=== PATIENT | female | born 1995 | race African-American/Black ===

== ENCOUNTER 2017-01-09 18:07 | Emergency (ER) | payer MEDICAID ==
[~2017-01-09] VITALS: Ht 160 cm; Wt 95.0 kg
[2017-01-09 18:34] VITALS: BP 122/69
== END 2017-01-09 20:05 | disposition left against medical advice (07) ==
LOC: ER 18:07
DX: Z53.21 Procedure and treatment not carried out due to patient leaving prior to being seen by health care provider (principal)

== ENCOUNTER 2017-06-14 10:42 | Observation (INO) | payer MEDICAID | END 2017-06-14 11:36 | disposition home or self-care (01) | LOC: L&D 10:42 | PROVIDERS: ADMIT Specialist; ATTEND Specialist | DX: O42.92 Full-term premature rupture of membranes, unspecified as to length of time between rupture and onset of labor (principal); O26.893 Other specified pregnancy related conditions, third trimester; R10.9 Unspecified abdominal pain; Z3A.38 38 weeks gestation of pregnancy | CPT/HCPCS: 99281; G0378 ==

== ENCOUNTER 2019-07-04 15:58 | Observation (INO) | payer MEDICAID ==
[~2019-07-04] VITALS: Ht 157.5 cm; Wt 99.8 kg
[2019-09-26] MEDS ORDERED: FERR325T6 PO (00:41)
[2019-09-26] MEDS ORDERED: IBUP-2437 PO (00:41)
== END 2019-07-04 18:55 | disposition home or self-care (01) ==
LOC: 8 EST LDRP 15:58
PROVIDERS: ADMIT Obstetrics & Gynecology; ATTEND Obstetrics & Gynecology
DX: O36.8130 Decreased fetal movements, third trimester, not applicable or unspecified (principal); Z3A.36 36 weeks gestation of pregnancy
CPT/HCPCS: 76805; 76818; 99281; G0378

== ENCOUNTER 2019-07-06 08:56 | Emergency (ER) | payer MEDICAID ==
[~2019-07-06] VITALS: Ht 160 cm; Wt 90.7 kg
== END 2019-07-06 10:22 | disposition left against medical advice (07) ==
LOC: ER 08:56 → EDSTATUS 09:53 → ER 10:22
DX: O21.8 Other vomiting complicating pregnancy (principal); Z3A.36 36 weeks gestation of pregnancy
CPT/HCPCS: 99281

== ENCOUNTER 2019-07-29 02:53 | Observation (INO) | payer MEDICAID ==
[~2019-07-29] VITALS: Ht 160 cm; Wt 81.2 kg
[2019-07-29] MEDS ORDERED: LACTATED RINGERS 1,000 ML IV SCH (03:30)
[2019-07-29 04:42] LABS: CLARITY URINE TURBID (CLEAR); COLOR URINE YELLOW (YELLOW); KETONES URINE TRACE (NEGATIVE); LEUKOCYTE ESTERASE URINE 1+ (NEGATIVE); NITRITE URINE NEGATIVE (NEGATIVE); OCCULT BLOOD URINE 1+ (NEGATIVE); PH URINE 8.5 (4.5-8.0); PROTEIN URINE TRACE (NEGATIVE); SPECIFIC GRAVITY URINE 1.019 (1.005-1.030)
[2019-07-29 04:53] LABS: *AMPHETAMINES SCREEN URINE NEGATIVE (NEGATIVE); *BARBITURATES SCREEN URINE NEGATIVE (NEGATIVE); *BENZODIAZEPINES SCREEN URINE NEGATIVE (NEGATIVE); *COCAINE SCREEN URINE NEGATIVE (NEGATIVE)
[2019-07-29 04:54] LABS: CANNABINOID URINE SCREEN NEGATIVE (NEGATIVE); METHADONE URINE SCREEN NEGATIVE (NEGATIVE); OPIATES URINE SCREEN NEGATIVE (NEGATIVE); PHENCYCLIDINE URINE SCREEN NEGATIVE (NEGATIVE)
[2019-09-26] MEDS ORDERED: FERR325T6 PO (00:41)
[2019-09-26] MEDS ORDERED: IBUP-2437 PO (00:41)
== END 2019-07-29 06:00 | disposition home or self-care (01) ==
LOC: 8 EST LDRP 02:53
PROVIDERS: ADMIT Specialist; ATTEND Specialist
DX: O26.893 Other specified pregnancy related conditions, third trimester (principal); R10.30 Lower abdominal pain, unspecified; M54.9 Dorsalgia, unspecified; O62.9 Abnormality of forces of labor, unspecified; Z3A.37 37 weeks gestation of pregnancy; Z79.899 Other long term (current) drug therapy
CPT/HCPCS: 76805; 76818; 80305; 81003; 82731; 99281; G0378; 96360

== ENCOUNTER 2021-04-15 07:33 | Emergency (ER) | payer MEDICAID ==
[~2021-04-15] VITALS: Ht 165.1 cm; Wt 88.0 kg
[~2021-04-15 07:33] MED LIST: FERR325T6 PO; IBUP-2437 PO
[2021-04-15 08:37] LABS: BASOPHILS % 0.6 % (0.0-2.0); EOSINOPHILS % 2.2 % (0.0-5.0); HEMATOCRIT. 36.3 % (36.0-48.0); HEMOGLOBIN. 11.8 g/dL (12.0-16.0); LYMPHOCYTES % 24.8 % (20.0-50.0); MEAN CORPUSCULAR HEMOGLOBIN 25.7 pg (28.0-32.0); MEAN CORPUSCULAR VOLUME 78.9 fL (81.0-99.0); MEAN PLATELET VOLUME 8.9 fl (7.4-10.4); MONOCYTES % 6.6 % (2.0-8.0); NEUTROPHILS % 65.8 % (40.0-76.0); PLATELET 165 x1000/uL (130-400); RED BLOOD CELL COUNT 4.61 mill/uL (4.2-5.4); RED CELL DISTRIBUTION WIDTH 13.9 % (11.6-14.6)
[2021-04-15 08:46] LABS: CHLORIDE 111 mEq/L (98-107)
[2021-04-15 09:53] VITALS: BP 119/48
== END 2021-04-15 09:55 | disposition home or self-care (01) ==
LOC: ER 07:33
DX: N93.8 Other specified abnormal uterine and vaginal bleeding (principal); R05.9 Cough, unspecified; D64.9 Anemia, unspecified
CPT/HCPCS: 36415; 71045; 80053; 85025; 99284

== ENCOUNTER 2021-09-17 15:36 | Emergency (ER) | payer MEDICAID ==
[~2021-09-17] VITALS: Ht 157.5 cm; Wt 87.0 kg
[2021-09-17 15:47] VITALS: BP 135/94
[2021-09-17 21:47] LABS: BASOPHILS % 0.8 % (0.0-2.0); EOSINOPHILS % 0.8 % (0.0-5.0); HEMATOCRIT. 38.9 % (36.0-48.0); HEMOGLOBIN. 12.4 g/dL (12.0-16.0); LYMPHOCYTES % 24.1 % (20.0-50.0); MEAN CORPUSCULAR VOLUME 78.6 fL (81.0-99.0); MEAN PLATELET VOLUME 8.9 fl (7.4-10.4); MONOCYTES % 4.6 % (2.0-8.0); NEUTROPHILS % 69.7 % (40.0-76.0); PLATELET 206 x1000/uL (130-400); RED BLOOD CELL COUNT 4.95 mill/uL (4.2-5.4); RED CELL DISTRIBUTION WIDTH 16.7 % (11.6-14.6)
[2021-09-17 21:53] LABS: CHLORIDE 110 mEq/L (98-107)
[2021-09-17 21:55] LABS: HCG SCREEN NEGATIVE
== END 2021-09-17 18:19 | disposition left against medical advice (07) ==
LOC: ER 15:36
DX: R10.11 Right upper quadrant pain (principal); Z53.21 Procedure and treatment not carried out due to patient leaving prior to being seen by health care provider
CPT/HCPCS: 36415; 80053; 84703; 85025; 86850; 86900; 99283

== ENCOUNTER 2021-09-17 19:32 | Emergency (ER) | payer MEDICAID ==
[~2021-09-17] VITALS: Ht 157.5 cm; Wt 87.0 kg
[2021-09-17 19:42] VITALS: BP 134/97
== END 2021-09-18 00:08 | disposition left against medical advice (07) ==
LOC: ER 19:32
DX: R10.9 Unspecified abdominal pain (principal); N93.9 Abnormal uterine and vaginal bleeding, unspecified; I48.92 Unspecified atrial flutter
CPT/HCPCS: 76830; 76856; 81025; 93005; 99282

== ENCOUNTER 2021-09-18 02:41 | Emergency (ER) | payer MEDICAID ==
[~2021-09-18] VITALS: Ht 157.5 cm; Wt 87.0 kg
[2021-09-18 03:06] VITALS: BP 128/87
== END 2021-09-18 05:00 | disposition left against medical advice (07) ==
LOC: ER 02:41
DX: Z53.21 Procedure and treatment not carried out due to patient leaving prior to being seen by health care provider (principal); R10.11 Right upper quadrant pain; N93.9 Abnormal uterine and vaginal bleeding, unspecified
CPT/HCPCS: 99281

== ENCOUNTER 2022-08-26 21:45 | Inpatient (IN) | payer MEDICAID ==
[~2022-08-26] VITALS: Ht 167.6 cm; Wt 71.2 kg
[2022-08-26] MEDS ORDERED: ONDANSETRON HCL 4MG/2ML INJ IV STA (22:52)
[2022-08-26] MEDS ORDERED: KETOROLAC 30MG/ML VIAL IV STA (22:52)
[2022-08-26] MEDS ORDERED: SODIUM CHLORIDE 0.9% 500 ML IV ONE (23:00)
[2022-08-26 23:28] LABS: HEMATOCRIT. 42.4 % (36.0-48.0); HEMOGLOBIN. 12.6 g/dL (12.0-16.0); MEAN CORPUSCULAR HEMOGLOBIN 21.1 pg (28.0-32.0); MEAN PLATELET VOLUME 9.1 fl (7.4-10.4); PLATELET 243 x1000/uL (130-400); RED BLOOD CELL COUNT 5.97 mill/uL (4.2-5.4); RED CELL DISTRIBUTION WIDTH 21.7 % (11.6-14.6)
[2022-08-26 23:31] LABS: CHLORIDE 104 mEq/L (98-107)
[2022-08-26 23:42] LABS: ETHANOL BLOOD < 10 mg/dL
[2022-08-26 23:54] LABS: HCG SCREEN NEGATIVE
[2022-08-27 00:17] LABS: CLARITY URINE CLEAR (CLEAR); COLOR URINE DARK YELLOW (YELLOW); KETONES URINE 1+ (NEGATIVE); LEUKOCYTE ESTERASE URINE TRACE (NEGATIVE); NITRITE URINE NEGATIVE (NEGATIVE); OCCULT BLOOD URINE NEGATIVE (NEGATIVE); PH URINE 5.5 (4.5-8.0); PROTEIN URINE TRACE (NEGATIVE); SPECIFIC GRAVITY URINE 1.019 (1.005-1.030)
[2022-08-27 00:37] LABS: *BARBITURATES SCREEN URINE NEGATIVE (NEGATIVE); *BENZODIAZEPINES SCREEN URINE NEGATIVE (NEGATIVE); *COCAINE SCREEN URINE NEGATIVE (NEGATIVE); METHADONE URINE SCREEN NEGATIVE (NEGATIVE); OPIATES URINE SCREEN NEGATIVE (NEGATIVE); PHENCYCLIDINE URINE SCREEN NEGATIVE (NEGATIVE)
[2022-08-27 01:08] LABS: *AMPHETAMINES SCREEN URINE PRESUMTIVE POSITIVE (NEGATIVE); CANNABINOID URINE SCREEN PRESUMTIVE POSITIVE (NEGATIVE)
[2022-08-27 01:58] LABS: BG BASE EXCESS -2.4 mmol/L (-2.0-2.0); BG CARBOXYHEMOGLOBIN 1.6 % (0.5-1.5); BG FRACTION INSPIRED OXYGEN 21; BG HCO3 ACT 20.6 mmol/L (22.0-26.0); BG METHEMOGLOBIN 0.4 % (0.0-1.5); BG PCO2 30.5 mmHg (35.0-45.0); BG PH 7.447 (7.350-7.450); BG PO2 141.7 mmHg (75.0-100.0); BG SAMPLE SITE RIGHT RADIAL; BG TOTAL HEMOGLOBIN 13.4 g/dL (12.0-18.0); BG VENT MODE ROOM AIR
[2022-08-27 05:13] VITALS: BP 141/101
[2022-08-27 05:19] LABS: PLATELET ESTIMATE NORMAL
[2022-08-27 05:22] VITALS: BP 141/101
[2022-08-27] MEDS ORDERED: LORAZEPAM 2MG/ML CPJ IV PRN (06:45)
[2022-08-27] MEDS: ONDANSETRON HCL 4MG/2ML INJ IV PRN ×2 (06:46→12:26)
[2022-08-27 08:00] VITALS: BP 110/84
[2022-08-27] MEDS: ENOXAPARIN 40MG/0.4ML SYR SUBCUT SCH (08:28)
[2022-08-27] MEDS: MORPHINE SULFATE 2 MG/ML CPJ (NOT FOR IM USE) IV PRN ×2 (08:29→22:08)
[2022-08-27] MEDS ORDERED: MAGNESIUM/ALUMINUM HYDROXIDE/SIMETHICONE 30ML UDC PO PRN (09:15)
[2022-08-27] MEDS: FUROSEMIDE 40MG/4ML VIAL IVP SCH (10:12)
[2022-08-27 12:00] VITALS: BP 116/72
[2022-08-27 13:43] LABS: BASOPHILS % 0.5 % (0.0-2.0); EOSINOPHILS % 0.4 % (0.0-5.0); HEMATOCRIT. 42.6 % (36.0-48.0); LYMPHOCYTES % 10.3 % (20.0-50.0); MEAN CORPUSCULAR HEMOGLOBIN 21.7 pg (28.0-32.0); MEAN CORPUSCULAR VOLUME 71.1 fL (81.0-99.0); MEAN PLATELET VOLUME 8.9 fl (7.4-10.4); MONOCYTES % 11.2 % (2.0-8.0); NEUTROPHILS % 77.6 % (40.0-76.0); PLATELET 243 x1000/uL (130-400); RED BLOOD CELL COUNT 5.99 mill/uL (4.2-5.4); RED CELL DISTRIBUTION WIDTH 21.4 % (11.6-14.6)
[2022-08-27 13:54] LABS: CHLORIDE 103 mEq/L (98-107)
[2022-08-27 16:00] VITALS: BP 120/84
[2022-08-27] MEDS ORDERED: NALOXONE HCL 0.4MG/ML VIAL IV PRN (17:00)
[2022-08-27] MEDS: HYDROCODONE/ACETAMINOPHEN 5/325MG TABLET PO PRN (17:55)
[2022-08-27 20:00] VITALS: BP 119/75
[2022-08-28 00:05] VITALS: BP 126/97
[2022-08-28 04:00] VITALS: BP 120/88
[2022-08-28] MEDS: MORPHINE SULFATE 2 MG/ML CPJ (NOT FOR IM USE) IV PRN (04:15)
[2022-08-28 07:56] LABS: BASOPHILS % 0.5 % (0.0-2.0); EOSINOPHILS % 1.6 % (0.0-5.0); HEMATOCRIT. 42.1 % (36.0-48.0); HEMOGLOBIN. 12.7 g/dL (12.0-16.0); LYMPHOCYTES % 24.7 % (20.0-50.0); MEAN CORPUSCULAR HEMOGLOBIN 21.8 pg (28.0-32.0); MEAN CORPUSCULAR VOLUME 72.2 fL (81.0-99.0); MONOCYTES % 9.4 % (2.0-8.0); NEUTROPHILS % 63.8 % (40.0-76.0); PLATELET 228 x1000/uL (130-400); RED BLOOD CELL COUNT 5.83 mill/uL (4.2-5.4); RED CELL DISTRIBUTION WIDTH 21.6 % (11.6-14.6)
[2022-08-28 08:00] VITALS: BP 131/85
[2022-08-28 08:09] LABS: CHLORIDE 105 mEq/L (98-107)
[2022-08-28 08:15] LABS: PHOSPHORUS 2.5 mg/dL (2.5-4.9)
[2022-08-28] MEDS: IPRATROPIUM/ALBUTEROL 0.5-3(2.5)MG/3ML NEB NEB SCH ×2 (08:17→13:51)
[2022-08-28] MEDS: FUROSEMIDE 40MG/4ML VIAL IVP SCH (09:20)
[2022-08-28] MEDS: ENOXAPARIN 40MG/0.4ML SYR SUBCUT SCH (09:20)
[2022-08-28 12:00] VITALS: BP 139/95
[2022-08-28] MEDS: HYDROCODONE/ACETAMINOPHEN 5/325MG TABLET PO PRN ×2 (13:40→20:17)
[2022-08-28 16:00] VITALS: BP 130/80
[2022-08-28 20:00] VITALS: BP 121/84
[2022-08-29 00:01] VITALS: BP 129/75
[2022-08-29] MEDS: HYDROCODONE/ACETAMINOPHEN 5/325MG TABLET PO PRN ×2 (00:51→07:43)
[2022-08-29] MEDS: IPRATROPIUM/ALBUTEROL 0.5-3(2.5)MG/3ML NEB NEB SCH ×3 (01:22→14:06)
[2022-08-29 04:00] VITALS: BP 118/53
[2022-08-29 06:46] LABS: BASOPHILS % 0.4 % (0.0-2.0); EOSINOPHILS % 1.5 % (0.0-5.0); HEMATOCRIT. 41.9 % (36.0-48.0); HEMOGLOBIN. 12.6 g/dL (12.0-16.0); LYMPHOCYTES % 22.9 % (20.0-50.0); MEAN CORPUSCULAR HEMOGLOBIN 21.6 pg (28.0-32.0); MEAN CORPUSCULAR VOLUME 71.7 fL (81.0-99.0); MEAN PLATELET VOLUME 9.4 fl (7.4-10.4); MONOCYTES % 10.1 % (2.0-8.0); NEUTROPHILS % 65.1 % (40.0-76.0); PLATELET 256 x1000/uL (130-400); RED BLOOD CELL COUNT 5.85 mill/uL (4.2-5.4); RED CELL DISTRIBUTION WIDTH 21.8 % (11.6-14.6)
[2022-08-29 07:28] LABS: CHLORIDE 105 mEq/L (98-107)
[2022-08-29 08:00] VITALS: BP 128/73
[2022-08-29] MEDS: ENOXAPARIN 40MG/0.4ML SYR SUBCUT SCH (08:11)
[2022-08-29] MEDS: FUROSEMIDE 40MG/4ML VIAL IVP SCH (08:11)
[2022-08-29 12:00] VITALS: BP 113/77
[2022-08-29 15:46] VITALS: BP 113/77
== END 2022-08-29 17:50 | disposition home or self-care (01) | DRG 812 ==
LOC: ER 21:45 → 7WST 08-27 02:53 → EDBEDREQ 08-27 03:05 → ENRESERV 08-27 03:21
PROVIDERS: ADMIT Internal Medicine Nephrology; ATTEND Internal Medicine Nephrology
DX: T50.911A Poisoning by multiple unspecified drugs, medicaments and biological substances, accidental (unintentional), initial encounter (principal); G92.8 Other toxic encephalopathy; I31.39 Other pericardial effusion (noninflammatory); I27.20 Pulmonary hypertension, unspecified; I42.9 Cardiomyopathy, unspecified; F19.10 Other psychoactive substance abuse, uncomplicated; E66.9 Obesity, unspecified; I50.9 Heart failure, unspecified; D64.9 Anemia, unspecified; K76.9 Liver disease, unspecified; I07.1 Rheumatic tricuspid insufficiency; I11.0 Hypertensive heart disease with heart failure; Z68.25 Body mass index [BMI] 25.0-25.9, adult; F17.200 Nicotine dependence, unspecified, uncomplicated; Z98.891 History of uterine scar from previous surgery
CPT/HCPCS: 36415; 36600; 71045; 74176; 78580; 80048; 80053; 80076; 80305; 80320; 81003; 82140; 82375; 82805; 83735; 83880; 84100; 84484; 84703; 85025; 93005; 93306; 94640; 99285; J1650; J1885; J1940; J2270; J2405; J7030; G0480